=== PATIENT | male | born 1970 ===

== ENCOUNTER 2021-06-03 19:46 | Emergency (ER) | payer BC, MEDICAID ==
[~2021-06-03] VITALS: Ht 195.6 cm; Wt 97.7 kg
[2021-06-03 22:53] VITALS: BP 125/78
== END 2021-06-03 22:54 | disposition home or self-care (01) ==
LOC: EMS 19:48
DX: S06.0X0A Concussion without loss of consciousness, initial encounter (principal); S13.4XXA Sprain of ligaments of cervical spine, initial encounter; M54.50 Low back pain, unspecified; V43.52XA Car driver injured in collision with other type car in traffic accident, initial encounter; Y93.89 Activity, other specified; Y92.89 Other specified places as the place of occurrence of the external cause; Y99.8 Other external cause status
CPT/HCPCS: 72040; 72100; 99284; Z7502